=== PATIENT | female | born 1960 | race Hispanic/Latino ===

== ENCOUNTER 2022-10-08 21:49 | Emergency (ER) | payer OTHER, SELFPAY ==
--- OUTSIDE RECORDS SUMMARY | 2022-10-08 21:52 | XMS REPORT | Continuity of Care Document ---
:1960 Author Organization [facility] t Address [address] [facility] [address] [place] [id number] Care Team Providers Name Role Phone Judy Bryson Primary Care Physician Provider, Undefined Attending Clinician Unavailable Pepe Mackey MD Attending Clinician Doctor Unassigned, [place] Attending Clinician Unavailable Brittany Vera OT Attending Clinician Unavailable Eliseo Hernández MD Attending Clinician ELISEO HERNÁNDEZ Attending Clinician Unavailable PEPE MACKEY Attending Clinician Unavailable Therapist, Adc Occup Attending Clinician Unavailable Dayton Gillis OT Attending Clinician Unavailable Sam'Akira Caldwell DO Attending Clinician Tacos Ji MD Attending Clinician Yasmany Santiago MD Attending Clinician [phone] Renee Landry Attending Clinician RENEE FAYE Attending Clinician Unavailable JUDY BRYSON Admitting Clinician Unavailable PEPE MACKEY Admitting Clinician Unavailable Pepe Mackey MD Admitting Clinician Payers Payer Name Policy Type Policy Number Effective Date Expiration Date S [facility] [id number] 2017 00:00:00 COMMERCIAL [id number] 2019 NON-CONTRACT 00:00:00 GENERIC Problems Condition Condition Condition Status Onset Resolution Last Treating Co mments Source Name Details Category Date Date Treatment Clinician Date Pain of Pain of Disease Active Univers right hand right hand 2-10 it y of 00:00: 00 Medical Branch Stiffness Stiffness Disease Active Uni vers of finger of finger 2-10 ity of joint of joint of 00:00: [place] right hand right hand 00 Me dical Branch Hand Hand Disease Active Univers weakness weakness 2-10 ity of 00:00: 00 Medical Branch Decreased Decreased Disease Active Uni vers activities activities 2-10 it y of of daily of daily 00:00: [place] living living 00 Medical (ADL) (ADL) Branch Carpal Carpal Disease Active 2020-04 Overview: Univer s 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 Added automatic ally from request for surgery [id number] Allergies, Adverse Reactions, Alerts Allergy Allergy Status Severity Reaction(s) Onset Inactive Treating Comm ents Source Name Type Date Date Clinician No Known DA Active [facility] Social History Social Habit Start Date Stop Date Quantity Comments Source History of Current smoker University of tobacco use [facility] Exposure to 2021-07-21 2021-07-31 Not sure [facility] SARS-CoV-2 00:00:00 13:34:00 [facility] (event) [place] Tobacco use and 2021-03-20 2021-03-20 Smokeless tobacco Un iversity of exposure 00:00:00 00:00:00 non-user [facility] Tobacco Comment 2021-03-20 2021-03-20 quit 8 years ago Uni versity of 00:00:00 00:00:00 [facility] Sex Ass[birth year] At [birth year] Universit y of 00:00:00 00:00:00 [facility] Smoking Status Start Date Stop Date Source Ex-smoker 2021-03-20 00:00:00 2021-03-20 00:00:00 [facility] [place] [facility] Medications Ordered Filled Start Stop Current Ordering Indication Dosage Frequency Signature Comments Components Source Medication Medication Date Date Medication? Clinician (SIG) Name Name gabapentin 0 Yes [id number] 300mg Take 1 Univers 300 mg 5-27 capsule by ity of capsule 00:00: mouth 3 00 (three) Medical times Branch daily. gabapentin 2021-0 Yes [id number] 300mg Take 1 Univers 300 mg 5-27 capsule by ity of capsule 00:00: mouth 3 (three) Medical times Branch daily. gabapentin 2021-0 2022- No [id number] 300mg Take 1 Univers 300 mg 4-14 08-11 capsule by ity of capsule 00:00: 00:00 mouth 3 [place] 00 :00 (three) Medical times Branch daily. diclofenac 0 Yes 75mg Take 1 Unive rs 75 mg EC 2-21 tablet by ity of tablet 00:00: mouth 2 (two) Medical times Branch daily with meals. gabapentin 2021-0 Yes [id number] 100mg Take 1 Univers 100 mg 2-21 capsule by ity of capsule 00:00: mouth 2 (two) Medical times Branch daily. Start taking in the evening diclofenac 2021-0 Yes 75mg Take 1 Unive rs 75 mg EC 2-21 tablet by ity of tablet 00:00: mouth 2 (two) Medical times Branch daily with meals. gabapentin 2021-0 Yes [id number] 100mg Take 1 Univers 100 mg 2-21 capsule by ity of capsule 00:00: mouth 2 (two) Medical times Branch daily. Start taking in the evening HYDROcodone 2020-04 Yes [id number] 1{tbl} Take 1 Un rani -acetaminop 2-20 tablet by ity of hen 5-325 00:00: mouth [place] mg tablet 00 every 6 Medical (six) Branch hours as needed for Pain (scale 4-6) or Pain (scale 7-10) for up to 15 doses. Indication s: acute pain HYDROcodone 2020-04 Yes [id number] 1{tbl} Take 1 Un rani -acetaminop 2-20 tablet by ity of hen 5-325 00:00: mouth [place] mg tablet 00 every 6 Medical (six) Branch hours as needed for Pain (scale 4-6) or Pain (scale 7-10) for up to 15 doses. Indication s: acute pain Immunizations Ordered Filled Immunization Date Status Comments [facility] e Immunization Name Name SARS-COV-2 COVID-19 2021-03-10 Completed Unive rsity of PFIZER VACCINE 00:00:00 [facility] SARS-COV-2 COVID-19 2021-03-10 Completed Unive rsity of PFIZER VACCINE 00:00:00 [facility] SARS-COV-2 COVID-19 2020-07-22 Completed Unive rsity of PFIZER VACCINE 00:00:00 [facility] SARS-COV-2 COVID-19 2020-07-22 Completed Unive rsity of PFIZER VACCINE 00:00:00 [facility] SARS-COV-2 COVID-19 2020-07-01 Completed Unive rsity of PFIZER VACCINE 00:00:00 [facility] SARS-COV-2 COVID-19 2020-07-01 Completed Unive rsity of PFIZER VACCINE 00:00:00 [facility] Procedures This patient has no known procedures. Encounters Start End Encounter Admission Attending Care Care Encounter Source Date/Time Date/Time Type Type Clinicians Facility Department ID 2022-05-12 2022-05-12 Outpatient EL Provider, [facility] RAD [id number] [facility] 12:37:00 12:37:00 Undefined 06 [facility] [place] [facility] 2021-11-14 2021-11-14 Refill Faillace, [facility] 1.2.304.358 [id number] Univers 00:00:00 00:00:00 Pepe SPECIALTY 350.1.13.10 ity of CARE 4.2.7.2.686 [facility] AT [phone] Wi matilde LOPES [address] [place] [address] 2021-11-14 2021-11-14 Refill Faillace, [facility] 1.2.599.328 [id number] Univers 00:00:00 00:00:00 Pepe SPECIALTY 350.1.13.10 ity of CARE 4.2.7.2.686 [facility] AT [phone] Wi matilde LOPES [address] [place] [address] 2021-11-13 2021-11-13 Refill Faillace, [facility] 1.2.719.575 [id number] Univers 00:00:00 00:00:00 [place] SPECIALTY 350.1.13.10 it[place] of [place]2.[place] [phone] Wi matilde LOPES [address] [facility] 2021-10-17 2021-10-17 Orders Doctor PEPE 1.2.840.114 [id number] Univers 00:00:00 00:00:00 Only Unassigned, [place] 350.1.13.10 ity of [place] [facility] 4.2.7.2.686 Carlos Alberto as [phone] [facility] [place] 009 [place] 2021-08-30 2021-08-30 Telephone Faillace, [facility] 1.2.840.114 [id number] Univers 00:00:00 00:00:00 [place] SPECIALTY 350.1.13.10 it[place] [phone] Wi matilde LOPES [address] [facility] 2021-08-30 2021-08-30 Tele[facility] 1.2.840.114 [id number] Univers 00:00:00 00:00:00 [place] SPECIALTY 350.1.13.10 it[place] of [place]7.[place] [phone] Wi matilde LOPES [address] [facility] 2021-08-27 2021-08-27 Telephone [facility] 1.2.840.114 [id number] Univers 00:00:00 00:00:00 [place] PRIMARY 350.1.13.10 it y of C[place] 4.2.7.2.[place] [phone] Wi dical 198 [place] 2021-08-13 2021-08-13 Ancillary Brittany Vera [facility] 1.2.84 0.114 [id number] Univers 09:30:00 10:15:00 Visit Eliseo Hernández 350.1.13.10 ity of [place] 4.2.7.2.686 [place] [phone] Wi dical NAL 178 [facility] 2021-08-13 2021-08-13 Outpatient R BETTY [facility] [id number] Univers 09:30:00 09:30:00 ELISEO gutierrez [facility] 2021-08-13 2021-08-13 Orders Doctor PEPE 1.2.840.114 [id number] Univers 00:00:00 00:00:00 Only Unassigned, [place] 350.1.13.10 ity of [place] [facility] 4.2.7.2.686 Carlos Alberto as [phone] [address] 2021-08-06 2021-08-07 Ancillary Brittany Vera [facility] 1.2.84 0.114 [id number] Univers 11:00:00 08:18:09 Visit Eliseo Hernández 350.1.13.10 ity [facility] 4.2.7.2.686 [place] [facility] [phone] Wi matilde [address] 2021-08-06 2021-08-06 Outpatient Tawanda HERNÁNDEZ [facility] [id number] Univers 11:00:00 11:00:00 ELISEO gutierrez [facility] 2021-07-31 2021-07-31 Outpatient Tawanda MACKEY [facility] [id number] Univers 14:20:00 14:24:03 PEPE gutierrez [facility] 2021-07-31 2021-07-31 Office [facility] 1.2.566.326 [id number] Univers 14:20:00 14:24:03 Visit Pepe FOUNTAIN 350.1.13.10 ity of [facility] 4.2.7.2.686 [place] [phone] Wi matilde MCLAINY [address] [facility] 2021-07-31 2021-07-31 Outpatient Tawanda MACKEY [facility] [id number] Univers 14:20:00 14:20:00 PEPE gutierrez [facility] 2021-07-30 2021-07-30 Outpatient Tawanda HERNÁNDEZ [facility] [id number] Univers 13:00:00 15:02:12 ELISEO [facility] 2021-07-30 2021-07-30 Ancillary Therapist, Adc Occup [facility] 1.2 .840.114 [id number] Univers 13:00:00 15:02:12 Visit Eliseo Hernández 350.1.13.10 ity of [place] 4.2.7.2.686 [place] PROFESS[place] [phone] Wi dical NAL 178 [facility] 2021-07-23 2021-07-23 Ancillary Dayton Gillis [facility] 1.2. 840.114 [id number] Univers 13:45:00 14:30:00 Visit Eliseo Hernández 350.1.13.10 ity of [facility] 4.2.7.2.686 [place] [phone] Wi dical NAL [address] [place] [address] 2021-07-17 2021-07-17 [facility] 1.2.840.114 [id number] Univers 00:00:00 00:00:00 Akira SPECIALTY 350.1.13.10 ity of C[place].2.7.2.[place] [phone] Wi dical VICTORY [address] [place] [address] 2021-07-16 2021-07-16 [facility] 1.2.840.114 [id number] Univers 00:00:00 00:00:00 Akira SPECIALTY 350.1.13.10 ity of C[place].2.7.2.[place] [phone] Wi dical VICTORY [address] [place] [address] 2021-07-11 2021-07-11 Ancillary Dayton Gillis [facility] 1.2. 840.114 [id number] Univers 13:00:00 13:45:00 Visit Eliseo Hernández 350.1.13.10 ity of [place] 4.2.7.2.686 [place] [phone] Wi dical NAL [address] [place] [address] 2021-07-11 2021-07-11 Outpatient R BETTY [facility] [id number] Univers 13:00:00 13:00:00 ELISEO itmitzy [facility] 2021-07-09 2021-07-09 Refcandelaria [facility] 1.2.246.700 [id number] Univers 00:00:00 00:00:00 Pepe SPECIALTY 350.1.13.10 it[place] of C[place].2.7.2.[place] [phone] Me dical VICTORY [address] [facility] 2021-07-02 2021-07-02 Outpatient R BETTY [facility] [id number] Univers 13:45:00 15:32:18 ELISEOROSA gutierrez [facility] 2021-07-02 2021-07-02 Ancillary Dayton Gillis [facility] 1.2. 840.114 [id number] Univers 13:45:00 15:32:18 Visit Eliseo Hern[facility].13.10 [facility] 4.2.7.2.[place] [phone] Me dical NAL 178 [facility] 2021-07-02 2021-07-02 Outpatient R BETTY [facility] [id number] Univers 13:45:00 13:45:00 ELISEO mitzy [facility] 2021-06-25 2021-06-25 Ancillary Dayton Gillis [facility] 1.2. 840.114 [id number] Univers 13:45:00 14:37:45 Visit Eliseo Hern[facility]dez [facility].1.13.10 [facility] 4.2.7.2.[place] [phone] Wi dical NAL [address] [place] [address] 2021-06-19 2021-06-19 Outpatient R KEY [facility] [id number] Univers 14:30:00 14:48:27 PEPE gutierrez [facility] 2021-06-19 2021-06-19 Office Key [facility] 1.2.583.912 [id number] Univers 14:30:00 14:48:27 Visit Pepe [place] [facility].1.13.10 [facility] [place].2.7.2.[place] [phone] Wi dicaditi MCLAINY [address] [facility] 2021-06-19 2021-06-19 Outpatient R KEY [facility] [id number] Univers 14:30:00 14:30:00 PEPE gutierrez [facility] 2021-06-06 2021-06-06 Ancillary Dayton Gillis [facility] 1.2. 840.114 [id number] Univers 13:00:00 13:45:00 Visit Betty Eliseo Pérez JONES 350.1.13.10 ity [facility] 4.2.7.2.[place] [phone] Wi dical NAL 178 [facility] 2021-05-30 2021-05-30 Ancillary Dayton Gillis [facility] 1.2. 840.114 [id number] Univers 15:30:00 16:55:15 Visit Betty Eliseo Pérez JONES 350.1.13.10 ity of [facility] 4.2.7.2.[place] [phone] Wi dical NAL 178 [facility] 2021-05-30 2021-05-30 Orders Doctor PEPE 1.2.840.114 [id number] Univers 00:00:00 00:00:00 Only Unassigned, [place] 350.1.13.10 ity [place] [facility] 4.2.7.2.686 [place] Alberto as [phone] [address] 2021-05-27 2021-05-27 Telephone [facility] 1.2.840.114 [id number] Univers 00:00:00 00:00:00 [place] SPECIALTY 350.1.13.10 it[place].2.[place] [phone] Wi matilde MCLAINY [address] [facility] 2021-05-25 2021-05-25 Refill [facility] 1.2.658.803 [id number] Univers 00:00:00 00:00:00 [place] SPECIALTY 350.1.13.10 it[place] of [place]2.7.2.[place] [phone] Wi dicaditi MCLAINY [address] [facility] 2021-05-21 2021-05-21 Outpatient Tawanda HERNÁNDEZ [facility] [id number] Univers 10:00:00 10:00:00 ELISEO gutierrez [facility] 2021-05-16 2021-05-16 Outpatient R BETTY [facility] [id number] Univers 16:30:00 17:23:54 ELISEO gutierrez [facility] 2021-05-16 2021-05-16 Ancillary Dayton Gillis [facility] 1.2. 840.114 [id number] Univers 16:30:00 17:23:54 Visit Eliseo Hernández 350.1.13.10 ity of [place] 4.2.7.2.686 [place] [phone] Wi dical NAL 178 [facility] 2021-05-15 2021-05-15 Office [facility] 1.2.347.187 [id number] Univers 14:00:00 15:22:09 Visit Pepe [place] 350.1.13.10 it[place] of [place] 4.2.7.2.[place] [phone] Wi matilde MCLAINY [address] [facility] 2021-05-15 2021-05-15 Outpatient R FAILNVFLO, [facility] [id number] Univers 14:00:00 15:22:09 PEPE [facility] 2021-05-15 2021-05-15 Outpatient R FAILNVFLO, [facility] [id number] Univers 14:00:00 14:00:00 PEPE [facility] 2021-05-15 2021-05-15 Orders Doctor PEPE 1.2.840.114 [id number] Univers 00:00:00 00:00:00 Only Unassigned, [place] 350.1.13.10 ity of [place] [facility] 4.2.7.2.686 [place] Alberto as [phone] [address] 2021-05-08 2021-05-08 Orders Doctor PEPE 1.2.840.114 [id number] Univers 00:00:00 00:00:00 Only Unassigned, [place] 350.1.13.10 ity of [place] [facility] 4.2.7.2.686 Carlos Alberto as [phone] [facility] 009 [place] 2021-04-15 2021-04-15 Telephone [facility] 1.2.840.114 [id number] Univers 00:00:00 00:00:00 Pepe [place] 350.1.13.10 it[place] of [place] 4.2.7.2.[place] [phone] Wi matilde RAYNEY [address] [facility] 2021-04-15 2021-04-15 Patient [facility] 1.2.206.800 [id number] Univers 00:00:00 00:00:00 Secure Msg [place] SPECIALTY 350.1.13.10 it[place] 4[place]2.7.2.[place] [phone] Wi matilde LOPES [address] [place] [address] 2021-04-10 2021-04-10 Outpatient R FAILLACE, [facility] [id number] Univers 13:40:00 13:48:20 [facility] 2021-04-10 2021-04-10 [facility] 1.2.657.077 [id number] Univers 13:40:00 13:48:20 Visit Pepe SPECIALTY 350.1.13.10 ity of [place].2.7.2.[place] [phone] Wi matilde [address] 2021-04-10 2021-04-10 Outpatient R FAILLACE, [facility] [id number] Univers 13:00:00 13:00:00 [facility] 2021-04-10 2021-04-10 Orders Doctor PEPE 1.2.840.114 [id number] Univers 00:00:00 00:00:00 Only Unassigned, [place] 350.1.13.10 ity of [place] [facility] 4.2.7.2.686 [place] Alberto as [phone] [address] 2021-04-03 2021-04-03 Office [facility] 1.2.281.185 [id number] Univers 15:20:00 16:06:53 Visit Pepe SPECIALTY 350.1.13.10 it[place] of [place] 4.2.7.2.[place] [phone] Wi matilde [address] 2021-04-03 2021-04-03 Outpatient R FAILLACE, [facility] [id number] Univers 15:20:00 16:06:53 [facility] 2021-04-03 2021-04-03 Outpatient R FAILLACE, [facility] [id number] Univers 15:20:00 16:06:53 [facility] 2021-04-032021-04-03 Outpatient R KEY, [facility] [id number] Univers 15:20:00 15:20:00 PEPE gutierrez [facility] 2021-04-03 2021-04-03 Outpatient R KEY, [facility] [id number] Univers 15:20:00 15:20:00 PEPE gutierrez [facility] 2021-03-25 2021-03-25 Surgery ROBERTO Mackey 1.2.776.519 [id number] Univers 08:31:00 10:14:00 Pepe SYLVESTER 350.1.13.10 it y of HOSPITAL 4.2.7.2.686 [place] Alberto as [phone] [facility] [address] 2021-03-25 2021-03-25 Outpatient R KEY, [facility] SOR [id number] Univers 06:23:00 09:28:00 PEPE gutierrez [facility] 2021-03-25 2021-03-25 Hospital ROBERTO Mackey 1.2.840.114 [id number] Univers 06:23:00 09:28:00 Encounter Pepe SYLVESTER 350.1.13.10 ity of HOSPITAL 4.2.7.2.686 [place] Alberto as [phone] [facility] 104 Branch 2021-03-25 2021-03-25 Anesthesia Tacos Ji 1.2. 840.114 [id number] Univers 07:22:00 08:40:00 Event Yasmany Santiago 350.1. 13.10 ity of HOSPITAL 4.2.7.2.686 [place]to as [phone] [facility] 103 Branch 2021-03-25 2021-03-25 Orders Doctor PEPE 1.2.840.114 [id number] Univers 00:00:00 00:00:00 Only UnassignedNGA 350.1.13.10 ity of [place] [facility] 4.2.7.2.686 [place] Alberto as [phone] [facility] 009 Branch 2021-03-15 2021-03-15 Telephone [facility] 1.2.840.114 [id number] Univers 00:00:00 00:00:00 Pepe PERDUE 350.1.13.10 it y [place]2.[place] [phone] Wi matilde Benz [place] 2021-03-13 2021-03-13 Patient [facility] 1.2.226.362 [id number] Univers 00:00:00 00:00:00 Secure Msg [place] SPECIALTY 350.1.13.10 it[place] 4.2.7.2.686 [place] [phone] Wi matilde LOPES [address] [facility] 2021-02-22 2021-02-22 Telephone [facility] 1.2.840.114 [id number] Univers 00:00:00 00:00:00 [place] SPECIALTY 350.1.13.10 it[place] 4.2.7.2.[place] [phone] Wi matilde LOPES [address] [place] [address] 2021-02-20 2021-02-20 Outpatient R [facility] [id number] Univers 13:00:00 13:30:55 PEPE ity of [facility] 2021-02-20 2021-02-20 Office [facility] 1.2.034.000 [id number] Univers 12:43:37 13:30:55 Visit Pepe SPECIALTY 350.1.13.10 ity of [place] 4.2.7.2.[place] [phone] Wi matilde Benz [facility] 2021-02-20 2021-02-20 Orders Doctor PEPE 1.2.840.114 [id number] Univers 00:00:00 00:00:00 Only Unassigned, N[place] 350.1.13.10 ity [place] [facility] 4.2.7.2.686 [place] Alberto as [phone] [address] 2020-11-12 2020-11-12 Office [facility] 1.2.638.500 [id number] Univers 07:43:42 08:23:21 Visit Pepe PRIMARY 350.1.13.10 it y of C[place] 4.2.7.2.[place] [phone] Wi matilde [address] [place] [address] 2020-11-12 2020-11-12 [facility] [id number] Univers 08:00:00 08:00:00 PEPE mitzy [facility] 2020-06-29 2020-06-29 Office [facility] 1.2.840.114 [id number] Univers 13:19:05 14:00:30 Visit Renee SPECIALTY 350.1.13.10 ity of CARE 4.2.7.2.686 [facility] AT [phone] Wi matilde LOPES [address] [place] [address] 2020-06-29 2020-06-29 Outpatient [facility] [id number] Univers 13:40:00 13:40:00 [facility] 2019-12-09 2019-12-22 Office [facility] 1.2.840.114 [id number] Univers 13:07:35 13:37:19 Visit Renee SPECIALTY 350.1.13.10 ity of CARE 4.2.7.2.686 [facility] AT [phone] Wi matilde LOPES [address] [place] [address] 2019-12-09 2019-12-09 Outpatient Tawanda FAYE [facility] [id number] Univers 13:30:00 13:30:00 [facility] 2019-09-09 2019-09-[address] [facility] [id number] 09:00:00 09:00:[id number] [facility] 2019-09-06 2019-09-[address] [facility] [id number] 09:00:00 09:00:[id number] [facility] Results Test Description Test Time Test Comments Results Result [facility] e Comments - MAMMO SCR CAD BI 2022-05-27 12:07:00 [facility] 1960 Sex: F Patient Name: WILLIS VIVEROS Unit No: [id number] EXAMS: CPT CODE: [id number] [place] [id number] Reason: ANNUAL Location of dictation: V20 HISTORY: Routine screening COMPARISON: None available Digitally acquired views of both breasts were obtained and interpreted. COMMENT: Heterogeneously dense fibroglandular tissue is present in each breast with no dominant masses, clustered microcalcifications or secondary signs of malignancy. IMPRESSION: No evidence of malignancy. BI-RADS CATEGORY 2-BENIGN FINDINGS RECOMMENDATION: YEARLY SCREENING MAMMOGRAM [facility] Accreditation FDA Certified Board Certified Radiologists (ARRT) Registered Mammography Technologists NOTE: 1. A negative x-ray report should not delay biopsy if a dominant or clinically suspicious mass is present. 4 to 8% of cancers are not identified by x-ray. 2. A negative report may reinforce clinical impression. 3. Adenosis and dense breast may obscure an underlying neoplasm. 4. False positive results average 6 to 10% FOR INTERNAL CODING PURPOSES ONLY RESULT CODE: 2 FOLLOW UP: N at 1207 Reported and signed by: Sheila Tavares MD CC: Breast Center Technologist: Kathy Vera RT MG Trscrpt Dt/ ([id number])DannyC Orig Print D/T: S: 05/27/2022 (1211) [facility] NAME: WILLIS VIVEROS 7101 SPID PHYS: UNDEFINED - Undefined Provider Jessica George,Jayla [address] : 1960 AGE: 61 SEX: F LOC: [facility] PHONE #: [phone] EXAM DATE: 05/12/2022 STATUS: DEP CLI FAX #: RAD NO: DC Dt: PAGE 1 Signed Report
[2022-10-08] MEDS ORDERED: LORAZEPAM 1 MG TABLET ONE (22:47)
[2022-10-08] MEDS ORDERED: ONDANSETRON 4 MG (ODT) TAB ONE (23:56)
[2022-10-08] MEDS ORDERED: MORPHINE 4 MG/ML SYR ONE (23:56)
[2022-10-09] MEDS ORDERED: CYCLOBENZAPRINE 10 MG TAB ONE (01:15)
[2022-10-09] MEDS ORDERED: GABAPENTIN 300 MG CAP ONE (01:16)
[2022-10-09] MEDS ORDERED: DIAZEPAM 10 MG/2 ML INJ SYRINGE ONE (01:16)
[2022-10-09] MEDS ORDERED: dexAMETHasone 4 MG/ML VIAL ONE (01:16)
--- NOTE | 2022-10-09 02:01 | EDPHYS ---
Physician Documentation [facility] Name: Millie Viveros Age: 62 yrs Sex: Female : 1960 Arrival Date: 10/08/2022 Time: 21:49 Bed 7 Private MD: ED Physician Kevin Patterson HPI: 10/08 23:27 This 62 yrs old Female presents to ER via Ambulatory with complaints of Back sb4 Pain, Breathing Difficulty. 23:27 62 year old female benedicto gallagher who presents with complaints of worsening right sb4 sided back pain. She states that she feels the pain is a pulmonary cause, not musculoskeletal. She denies any shortness of breath. She is scheduled to have a CT chest tomorrow for lung cancer screening. She states the pain has increasingly gotten worse to where she can no longer tolerate it. Historical: - PMHx: 22:33 None; rv - PSHx: 22:33 BACK SURGERY; rv - Immunization history:: Adult Immunizations up to date. - Social history:: Smoking status: Patient/guardian denies using tobacco, the patient reports quitting approximately 8 years ago. ROS: 23:27 Constitutional: Negative for fever, chills, and weight loss, Eyes: Negative for injury, sb4 pain, redness, and discharge, ENT: Negative for injury, pain, and discharge, Cardiovascular: Negative for chest pain, palpitations, and edema, Respiratory: Negative for shortness of breath, cough, wheezing, and pleuritic chest pain, Abdomen/GI: Negative for abdominal pain, nausea, vomiting, diarrhea, and constipation, MS/Extremity: Negative for injury and deformity, Skin: Negative for injury, rash, and discoloration, Neuro: Negative for headache, weakness, numbness, tingling, and seizure, Psych: Negative for depression, anxiety, suicide ideation, homicidal ideation, and hallucinations. 23:27 Back: Positive for pain at rest, pain with movement. Exam: 23:27 Constitutional: This is a well developed, well nourished patient who is awake, alert, sb4 and in no acute distress. Head/Face: Normocephalic, atraumatic. Eyes: Extra-ocular motions intact. Periorbital areas with no swelling, redness, or edema. ENT: Mucous membranes moist. Cardiovascular: Regular rate and rhythm with a normal S1 and S2. Respiratory: Lungs have equal breath sounds bilaterally, clear to auscultation and percussion. No rales, rhonchi or wheezes noted. No increased work of breathing, no retractions or nasal flaring. Abdomen/GI: Soft, non-tender, no distension. Skin: Warm, dry with normal turgor. Normal color with no rashes, no lesions, and no evidence of cellulitis. MS/ Extremity: Pulses equal, no cyanosis. Neurovascular intact. Full, normal range of motion. Neuro: Awake and alert, GCS 15, oriented to person, place, time, and situation. Cranial nerves II-XII grossly intact. Motor strength 5/5 in all extremities. Sensory grossly intact. Cerebellar exam normal. Normal gait. 23:27 Psych: Behavior/mood is anxious. Vital Signs: 22:31 BP 141 / 100; Pulse 77; Resp 17; Temp 98.8; Pulse Ox 100% on R/A; rv 10/09 01:28 BP 128 / 69; Pulse 72; Resp 15 S; Pulse Ox 99% on R/A; lg3 Quinn Coma Score: 02:08 Eye Response: spontaneous(4). Motor Response: obeys commands(6). Verbal Response: rv oriented(5). Total: 15. MDM: 10/08 22:05 Patient medically screened. sb4 23:27 Differential diagnosis: Abdominal Aortic Aneurysm chronic back pain, Fracture sb4 Metastatic Disease Neoplasm Osteoarthritis ruptured disc, spinal injury. 10/09 02:27 Data reviewed: vital signs, nurses notes, radiologic studies, CT scan. Historians other sb4 than the Patient: Spouse/Significant Other: . 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 10/08 22:35 Order name: Chest Wo Con CT sb4 Administered Medications: 10/08 22:46 Drug: LORazepam PO 1 mg Route: PO; rv 10/09 01:28 Follow up: Response: No adverse reaction rv 10/08 23:50 Drug: morphine IM 4 mg Route: IM; Site: right deltoid; rv 10/09 01:28 Follow up: Response: No adverse reaction rv 10/08 23:51 Not Given (Duplicate Order): Zofran IM 4 mg IM once rv 23:51 Drug: Ondansetron PO 4 mg Route: PO; rv 10/09 01:29 Follow up: Response: No adverse reaction rv 01:10 Drug: Cyclobenzaprine PO 10 mg Route: PO; rv 02:07 Follow up: Response: No adverse reaction; Marked relief of symptoms rv 01:15 Drug: Diazepam IM 5 mg Route: IM; Site: right gluteus; rv 02:06 Follow up: Response: No adverse reaction; Marked relief of symptoms rv 01:16 Drug: Dexamethasone IM 10 mg Route: IM; Site: left gluteus; rv 02:07 Follow up: Response: No adverse reaction; Marked relief of symptoms rv 01:20 Drug: Gabapentin PO 300 mg Route: PO; rv 02:07 Follow up: Response: No adverse reaction; Marked relief of symptoms rv Disposition: 06:56 Co-signature as Attending Physician, Kevin Patterson MD I agree with the assessment sp4 and plan of care. I reviewed the patient's care provided by the Advanced Practice Provider and agree with the diagnosis and treatment plan. Disposition Summary: 10/09/22 02:00 Discharge Ordered Location: Home sb4 Problem: an ongoing problem sb4 Symptoms: have improved sb4 Condition: Stable sb4 Diagnosis - Radiculopathy, cervicothoracic region sb4 Followup: sb4 - With: - When: Tomorrow - Reason: Further diagnostic work-up, Recheck today's complaints, Re-evaluation by your physician Discharge Instructions: - Discharge Summary Sheet sb4 - Cervical Radiculopathy sb4 - Pinched Nerve sb4 Forms: - Medication Reconciliation Form sb4 - Thank You Letter sb4 - Antibiotic Education sb4 - Prescription Opioid Use sb4 - [email or web address] sb4 Prescriptions: - Medrol (Sundar) 4 mg Oral Tablets, Dose Pack - take 1 tablet by ORAL route as directed - follow package instructions; 1 sb4 packet; Refills: 0, Product Selection Permitted - Cyclobenzaprine 5 mg Oral Tablet - take 1 tablet by ORAL route 3 times per day As needed; 15 tablet; Refills: 0, sb4 Product Selection Permitted Signatures: Dispatcher [employer] Liam Plasencia RN RN rv Simón Mosher RN RN ll3 Cassia Montgomery, ZEHRA SHAHID sb4 Kevin Patterson MD MD sp4 Corrections: (The following items were deleted from the chart) 10/08 22:34 22:33 PSHx: None; rv rv
--- NOTE | 2022-10-09 02:01 | ER ---
Nurse's Notes [facility] Name: Millie Viveros Age: 62 yrs Sex: Female : 1960 Arrival Date: 10/08/2022 Time: 21:49 Bed 7 Private MD: Diagnosis: Radiculopathy, cervicothoracic region Presentation: 10/08 22:31 Chief complaint: Patient states: SEVERE UPPER BACK PAIN, MIDDLE, FROM PERSISTENT rv COUGHING. Coronavirus screen: Vaccine status:. Ebola Screen: Patient negative for fever greater than or equal to 101.5 degrees Fahrenheit, and additional compatible Ebola Virus Disease symptoms Patient denies exposure to infectious person. Patient denies travel to an Ebola-affected area in the 21 days before illness onset. Initial Sepsis Screen: Does the patient meet any 2 criteria? No. Patient's initial sepsis screen is negative. Does the patient have a suspected source of infection? No. Patient's initial sepsis screen is negative. Risk Assessment: Do you want to hurt yourself or someone else? Patient reports no desire to harm self or others. Onset of symptoms was October 08, 2022. 22:31 Method Of Arrival: Ambulatory rv 22:31 Acuity: DIANNE 4 rv Triage Assessment: 22:34 General: Appears uncomfortable, Behavior is calm, cooperative. Pain: Complains of pain rv in thoracic area. Neuro: Level of Consciousness is awake, alert, obeys commands, Oriented to person, place, time, situation. Cardiovascular: Capillary refill < 3 seconds. Respiratory: Airway is patent Respiratory effort is even, unlabored. GI: No signs and/or symptoms were reported involving the gastrointestinal system. : No signs and/or symptoms were reported regarding the genitourinary system. Musculoskeletal: Circulation, motion, and sensation intact. Range of motion: intact in all extremities. Historical: - PMHx: 22:33 None; rv - PSHx: 22:33 BACK SURGERY; rv - Immunization history:: Adult Immunizations up to date. - Social history:: Smoking status: Patient/guardian denies using tobacco, the patient reports quitting approximately 8 years ago. Screenin:35 [facility] ED Fall Risk Assessment (Adult) History of falling in the last 3 months, rv including since admission No falls in past 3 months (0 pts) Confusion or Disorientation No (0 pts) Intoxicated or Sedated No (0 pts) Impaired Gait No (0 pts) Mobility Assist Device Used No (0 pt) Altered Elimination No (0 pt) Score/Fall Risk Level 0 - 2 = Low Risk Oriented to surroundings, Maintained a safe environment, Educated pt \T\ family on fall prevention, incl call for assistance when getting out of bed, Assessed \T\ reinforced patient's understanding of fall precautions, Provided non-skid footwear, Hourly rounding (assess needs \T\ fall precautionary measures) done, Used ambulatory aids as needed (educated on \T\ assisted with), Used gait belt as appropriate. Abuse screen: Denies threats or abuse. Denies injuries from another. Nutritional screening: No deficits noted. Tuberculosis screening: No symptoms or risk factors identified. Assessment: 10/09 02:00 Reassessment: Patient appears in no apparent distress at this time. Patient and/or rv family updated on plan of care and expected duration. Pain level reassessed. Patient is alert, oriented x 3, equal unlabored respirations, skin warm/dry/pink. 02:00 Pain: Denies pain. Neuro: Level of Consciousness is awake, alert, obeys commands, rv Oriented to person, place, time, situation. Respiratory: No deficits noted. Vital Signs: 10/08 22:31 BP 141 / 100; Pulse 77; Resp 17; Temp 98.8; Pulse Ox 100% on R/A; rv 10/09 01:28 BP 128 / 69; Pulse 72; Resp 15 S; Pulse Ox 99% on R/A; lg3 Quinn Coma Score: 02:08 Eye Response: spontaneous(4). Motor Response: obeys commands(6). Verbal Response: rv oriented(5). Total: 15. ED Course: 10/08 21:49 Patient arrived in ED. ja2 21:51 Cassia Montgomery [facility]C [facility] sb4 21:51 Kevin Patterson MD is Attending Physician. sb4 22:21 Liam Fernandez RN is Primary Nurse. rv 22:33 Triage completed. rv 22:35 Arm band placed on right wrist. rv 22:35 No provider procedures requiring assistance completed. rv 22:36 Patient has correct armband on for positive identification. Bed in low position. Call rv light in reach. Side rails up X 1. Adult w/ patient. Client placed on continuous cardiac and pulse oximetry monitoring. NIBP monitoring applied. 23:[address] In Process Unspecified. EDMS 10/09 02:00 Quique Johnson MD is Referral Physician. sb4 02:08 Patient did not have IV access during this emergency room visit. rv Administered Medications: 10/08 22:46 Drug: LORazepam PO 1 mg Route: PO; rv 10/09 01:28 Follow up: Response: No adverse reaction rv 10/08 23:50 Drug: morphine IM 4 mg Route: IM; Site: right deltoid; rv 10/09 01:28 Follow up: Response: No adverse reaction rv 10/08 23:51 Not Given (Duplicate Order): Zofran IM 4 mg IM once rv 23:51 Drug: Ondansetron PO 4 mg Route: PO; rv 10/09 01:29 Follow up: Response: No adverse reaction rv 01:10 Drug: Cyclobenzaprine PO 10 mg Route: PO; rv 02:07 Follow up: Response: No adverse reaction; Marked relief of symptoms rv 01:15 Drug: Diazepam IM 5 mg Route: IM; Site: right gluteus; rv 02:06 Follow up: Response: No adverse reaction; Marked relief of symptoms rv 01:16 Drug: Dexamethasone IM 10 mg Route: IM; Site: left gluteus; rv 02:07 Follow up: Response: No adverse reaction; Marked relief of symptoms rv 01:20 Drug: Gabapentin PO 300 mg Route: PO; rv 02:07 Follow up: Response: No adverse reaction; Marked relief of symptoms rv Medication: 10/08 22:35 VIS not applicable for this client. rv Outcome: 10/09 02:00 Discharge ordered by . sb4 02:08 Discharged to home ambulatory, with family. rv 02:08 Condition: improved 02:08 Discharge instructions given to patient, family, Instructed on discharge instructions, follow up and referral plans. Demonstrated understanding of instructions, follow-up care, medications, Prescriptions given X 2. 02:08 Patient left the ED. rv Signatures: Dispatcher [employer] EDIN Liam Fernandez RN RN rv Danielle Freeman RN RN [email or web address] Sylwia Pearson Sophia, PA-C PA-C sb4 Corrections: (The following items were deleted from the chart) 10/08 22:34 22:33 PSHx: None; rv rv
[2022-10-09 02:12] VITALS: TEMP 98.8
[2022-10-09 02:14] VITALS: BP 128/69; O2SAT 99
--- NOTE | 2022-10-09 16:06 | RAD REPORT ---
EXAM DESCRIPTION: Thorax Wo Con CLINICAL HISTORY: 62 years Female, PAIN, upper back pain, cough TECHNIQUE: Helical CT axial images of the thorax without IV contrast. Multiplanar reconstruction. This exam was performed according to our departmental dose-optimization program, which includes autom ated exposure control, adjustment of the mA and/or kV according to patient size and/or use of iterati ve reconstruction technique. COMPARISON: Chest x-ray 05/25/2017 FINDINGS: LUNGS: A 3 mm calcified granuloma within the right middle lobe and left lower lobe. No a telectasis or consolidation. No pulmonary masses or suspicious nodules. MEDIASTINUM: No abnormally enlarged mediastinal or hilar lymph nodes. PLEURA: No pleural effusion. No pneumothorax. CARDIAC: Normal heart size. No pericardial effusion. VASCULAR: Thoracic aorta is normal in caliber without aneurysm. The pulmonary vasculature demonstrate s no significant dilatation. CHEST WALL: Chest wall is intact. No abnormal axillary lymphadenopathy. BONES: No acute fracture. Mild mid thoracic spine degenerative spurring. No suspicious osseous lyti c or blastic lesions seen. UPPER ABDOMEN: The visualized upper abdomen demonstrates no acute abnormality. IMPRESSION: 1. No acute cardiopulmonary disease. 2. Mild degenerative spurring mid cervical spine. No acute osseous abnormality. Electronically signed by: Bean Kay MD 10/09/2022 12:42 AM CDT Due to temporary technical issues with the PACS/Fluency reporting system, reports are being signed by the in house radiologists without review as a courtesy to insure prompt reporting. The interpreting radiologist is fully responsible for the content of the report.
== END 2022-10-09 02:08 | disposition home or self-care (01) ==
LOC: ER 21:49
DX: M54.13 Radiculopathy, cervicothoracic region (principal)
CPT/HCPCS: 71250; 96372; 99284; Q0162; J1100; J3360